=== PATIENT | male | born 1995 | race Caucasian/White ===

== ENCOUNTER 2018-06-28 03:12 | Emergency (ER) | payer SELFPAY ==
[~2018-06-28] VITALS: Ht 185.4 cm; Wt 79.4 kg
[2018-06-28 03:14] VITALS: BP 132/66
--- NOTE | 2018-06-28 03:19 | NUR ---
PT TAKEN TO BED 3
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
--- NOTE | 2018-06-28 03:29 | NUR ---
Dr. Guerin evaluating patient
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
[2018-06-28] MEDS ORDERED: LIDOCAINE/EPI 2% 1:100000 20 ML VIAL INJ ONE (03:35)
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
--- NOTE | 2018-06-28 04:47 | NUR ---
DR. WU AT BEDSIDE FOR PROCEDURE
[2018-06-28] MEDS ORDERED: TETRACAINE HCL/PF 0.5% OPTH 4 ML BTL ONE (05:40)
[2018-06-28] MEDS ORDERED: FLUORESCEIN OPTH STRIP 0.6 MG ONE (05:40)
[2018-06-28] MEDS ORDERED: TETRACAINE HCL/PF 0.5% OPTH 4 ML BTL OP ONE (05:45)
[2018-06-28] MEDS ORDERED: FLUORESCEIN OPTH STRIP 0.6 MG OP ONE (05:45)
[2018-06-28] MEDS ORDERED: BACITRACIN OINT 500 UNITS/GM PKT TP ONE ×2 (05:45→05:47)
[2018-06-28 05:52] VITALS: BP 132/66
--- NOTE | 2018-06-28 05:52 | NUR ---
Patient discharged with v/s stable. Written and verbal after care instructions given and explained. Patient alert, oriented and verbalized understanding of instructions. Ambulatory with steady gait. All questions addressed prior to discharge. ID band removed. Patient advised to follow up with PMD. Rx of BACITRACIN, TOBRAMYCIN, ACETAMINOPHEN WAS given. Patient educated on indication of medication including possible reaction and side effects. Opportunity to ask questions provided and answered.
== END 2018-06-28 05:52 | disposition home or self-care (01) ==
LOC: MED 03:12
DX: S01.411A Laceration without foreign body of right cheek and temporomandibular area, initial encounter (principal); S01.111A Laceration without foreign body of right eyelid and periocular area, initial encounter; Y04.2XXA Assault by strike against or bumped into by another person, initial encounter; Y93.89 Activity, other specified; Y92.89 Other specified places as the place of occurrence of the external cause; Y99.8 Other external cause status
CPT/HCPCS: 12014; 70150; 99284; J2001